=== PATIENT | female | born 1950 | race Caucasian/White ===

== ENCOUNTER 2016-10-22 08:22 | Day surgery (SDC) | payer OTHER ==
[2016-10-22] MEDS ORDERED: PROPOFOL 500 MG/50 ML EMU IV ONE (09:58)
[2016-10-22 10:32] VITALS: BP 154/78; RESP 18; TEMP 97.4
[2016-10-22 11:05] VITALS: PULSE 72; O2SAT 99
== END 2016-10-22 11:25 | disposition home or self-care (01) ==
LOC: SURG 08:22
PROVIDERS: ATTEND Surgery
DX: Z12.11 Encounter for screening for malignant neoplasm of colon (principal); K57.30 Diverticulosis of large intestine without perforation or abscess without bleeding; K63.5 Polyp of colon
CPT/HCPCS: 45380; J2001; J2704 ×2